=== PATIENT | female | born 1975 | race African-American/Black ===

== ENCOUNTER 2020-05-02 01:48 | Emergency (ER) | payer OTHER ==
[~2020-05-02] VITALS: Ht 162.6 cm; Wt 108.9 kg
[~2020-05-02 01:48] MED LIST: ABILIFY10 MG PO; FLEXERIL PO; IBUPROFEN 600600 M1 PO; PROVENTIL HFA6.7 G1 INH; TESSALON PERLE100 MG PO; ZPAK PO
[2020-05-02] MEDS ORDERED: MOBIC15 MG PO (02:32)
[2020-05-02 02:46] VITALS: BP 116/62
== END 2020-05-02 02:57 | disposition home or self-care (01) ==
LOC: ER 01:48
DX: S46.811A Strain of other muscles, fascia and tendons at shoulder and upper arm level, right arm, initial encounter (principal); F17.210 Nicotine dependence, cigarettes, uncomplicated; Z79.899 Other long term (current) drug therapy; X58.XXXA Exposure to other specified factors, initial encounter; Y93.89 Activity, other specified; Y92.89 Other specified places as the place of occurrence of the external cause; Y99.8 Other external cause status